=== PATIENT | female | born 1945 | race Caucasian/White ===

== ENCOUNTER 2018-02-11 08:03 | Outpatient (CLI) | payer MEDICARE, OTHER ==
[~2018-02-11] VITALS: Ht 162.6 cm; Wt 52.3 kg
--- NOTE | ~2018-02-11 | HEMODYNAMI ---
PATIENT:RIGO CRAMER MEDICAL RECORD: [id number] : 41 LOCATION:[facility] ADMISSION DATE: 02/11/18 Generatedon:02/11/201810:25 Patient name: RIGO CRAMER Patient #: [id number] SSN: : 1945 Date of study: 02/11/2018 Page: Of Hemodynamic Procedure Report Patient Data Patient Demographics Procedure consent was obtained First Name: RIGO Gender: Female Last Name: SHOAIB : 1945 [facility] Initial: MICHAEL Age: 72 year(s) Patient #: [id number] Race: Unknown Additional ID: [id number] Contact details [address]: [address] [place] [address] State: [place] City: [place] Zip code: [address] Past Medical History Allergies Allergen Reaction Date Comments Reported Other allergy 02/11/2018 Iodine, Morphine, Tetracycline. Admission Admission Data Admission Date: 02/11/2018 Admission Time: 8:03 Admit Source: Other Lab Results Lab Result Date: 02/11/2018 Lab Result Time: 9:04 Biochemistry Name Units Result Min Max BUN mg/dl 9 --(*---)-- 7 18 Creatinine mg/dl 0.8 --(-*--)-- 0.6 1.3 CBC Name Units Result Min Max Hematocrit % 37.7 *-(----)-- 42 54 Hemoglobin g/dl 12.7 -*(----)-- 13.5 17.5 Procedure Procedure Types Cath Procedure Diagnostic Procedure C LH w/Coronaries FFR/IVUS Intra-Coronary IVUS Initial Sedation Charges Moderate Sedation up to 15 minutes PCI Procedure Coronary Stent Coronary Stent Initial Peripheral Cath Diagnostic Procedure Notch Grinder Peripheral Procedures Wvhvr-Qpwsjjl-Rxg-Off Procedure Description Procedure Date Procedure Date: 02/11/2018 Procedure Start Time: 9:57 Procedure End Time: 10:22 Procedure Staff Name Function Jacques Mcmillan MD Performing Physician Lawson Callejas RT Scrub Franklin Rodriguez RT Monitor Buffie Akers RN Nurse Procedure Data Cath Procedure Fluoroscopy Diagnostic fluoroscopy Total fluoroscopy Time: 4.2 time: 4.2 min min Diagnostic fluoroscopy Total fluoroscopy dose: dose: 205.29 mGy 205.29 mGy Contrast Material Contrast Material Type Amount (ml) Isovue 300 156 Entry Location Entry Primary Successful Side Size Upsize Upsize Entry Closure Succes sful Closure Location (Fr) 1 (Fr) 2 (Fr) Remarks Device Remarks Femoral Left 5 Fr 6 Fr Exoseal artery Short Estimated blood loss: 10 ml Diagnostic catheters Device Type Used For End Catheter Placement MULTIPACK Pigtail 5 Fr Procedure catheter MULTIPACK JL 4.0 5Fr Procedure catheter MULTIPACK 3DRC 5Fr Procedure catheter Procedure Complications No complications Procedure Medications Medication Administration Route Dosage Oxygen etCO2 Nasal cannula 2 l/min Lidocaine 2% added to field 20 Heparin Flush Bag added to field 2 bags (1000units/500ml NS) 0.9% NaCl I.V. 100 ml/hr Versed I.V. 1 mg Fentanyl I.V. 50 mcg Versed I.V. 1 mg Fentanyl I.V. 50 mcg Heparin Bolus I.V. 4000 units Fentanyl I.V. 25 mcg Hemodynamics Rest HGB: 12.7 (g/dl) Heart Rate: 55 (bpm) Snapshots Pre Cath Intra NCS Post Cath Vital Signs Time Heart Resp SPO2 etCO2 NIBP (mmHg) Rhythm Pain Sedation Rate (ipm) (%) (mmHg) Status Level (bpm) 9:41:51 76 14 96 0 204/93(132) NSR 0 (11) 10(A) , No pain 9:46:30 69 13 99 0 192/85(140) NSR 0 (11) 10(A) , No pain 9:50:58 71 15 100 25 186/85(123) NSR 0 (11) 10(A) , No pain 9:55:10 75 12 95 0 161/96(143) NSR 0 (11) 10(A) , No pain 10:03:09 82 15 96 8.3 167/88(150) NSR 0 (11) 10(A) , No pain 10:07:33 85 12 98 18.2 182/92(121) NSR 0 (11) 9(A) , No pain 10:11:56 85 13 98 19.7 171/90(124) NSR 0 (11) 9(A) , No pain 10:16:20 94 13 100 0 180/93(146) NSR 0 (11) 10(A) , No pain 10:20:46 92 12 100 24.2 200/104(150) NSR 0 (11) 10(A) , No pain Medications Time Medication Route Dose Verified Delivered Reason Notes Effectiveness by by 9:45:51 Oxygen etCO2 2 Jacques George used for Nasal l/min Deyanira Akers RN procedure cannula 9:46:00 Lidocaine 2% added 20ml Jacques Jacques for local to vial Deyanira Mcmillan MD anesthetic field 9:46:06 Heparin Flush added 2 Jacques Jacques used for Bag to bags Deyanira Mcmillan MD procedure (1000units/500ml field NS) 9:46:16 0.9% NaCl I.V. 100 Jacques Buffie Per physician ml/hr Deyanira Akers RN 9:54:39 Versed I.V. 1 mg Jacques Rasheedie for sedation Deyanira Akers RN 9:54:44 Fentanyl I.V. 50 Jacques Buffie for sedation mcg Deyanira Akers RN 9:59:55 Versed I.V. 1 mg Jacques Buffie for sedation Deyanira Akers RN 10:00:03 Fentanyl I.V. 50 Jacques Buffie for sedation mcg Deyanira Akers RN 10:05:32 Fentanyl I.V. 25 Jacques Buffie for sedation mcg Deyanira Akers RN 10:08:21 Heparin Bolus I.V. 4000 Jacques Buffie for verif ied units Deyanira Akers RN anticoagulation with dr mcmillan Procedure Log Time Note 9:09:32 Informed consent obtained and on chart 9:27:18 Admit Source: Other 9:28:36 Diagnostic Cath status Elective 9:28:37 Lawson Callejas RT(R) sent for patient. Start room use. 9:28:38 Time tracking: Regular hours (M-F 7:00 - 5:00) 9:28:43 Plan of Care:Hemodynamics will remain stable., Cardiac rhythm will remain stable., Comfort level will be maintained., Respiratory function will remain adequate., Patient/ family verbilizes understanding of procedure., Procedure tolerated without complication., Recovers from procedure without complications.. 9:30:40 Lab Result : BUN 9 mg/dl 9:30:40 Lab Result : Creatinine 0.8 mg/dl 9:30:40 Lab Result : Hemoglobin 12.7 g/dl 9:30:40 Lab Result : Hematocrit 37.7 % 9:30:43 Lab results completed and on chart. 9:33:58 Patient received from Pre/Post Procedure Room to CCL 3 Alert and oriented. Tansferred to table in Supine position. 9:33:59 Warm blankets applied, and alisson hugger turned on for patient comfort. 9:33:59 Correct patient and procedure confirmed by team. 9:34:00 ECG and BP/O2 sat monitors applied to patient. 9:34:19 H&P Date Dictated: 02/04/2018 Within 30 days and on chart., H&P Addendum completed by physician on day of procedure. (MUST COMPLETE FOR ALL OUTPATIENTS). 9:34:20 Pre-procedure instructions explained to patient. 9:34:20 Pre-op teaching completed and patient verbalized understanding. 9:34:21 Family in waiting room. 9:34:24 Patient NPO since Midnight. 9:39:26 Vital chart was started 9:45:51 Oxygen 2 l/min etCO2 Nasal cannula was administered by Ariel Akers RN; used for procedure; 9:46:00 Lidocaine 2% 20ml vial added to field was administered by Jacques Mcmillan MD; for local anesthetic; 9:46:04 Baseline sample Acquired. 9:46:06 Heparin Flush Bag (1000units/500ml NS) 2 bags added to field was administered by Jacques Mcmillan MD; used for procedure; 9:46:12 Baseline sample Acquired. 9:46:16 0.9% NaCl 100 ml/hr I.V. was administered by Ariel Akers RN; Per physician; 9:46:18 Rhythm: sinus rhythm 9:46:19 Full Disclosure recording started 9:46:34 Patient allergic to Other allergyIodine, Morphine, Tetracycline. 9:46:36 Is the patient allergic to Iodine/contrast media? Yes. 9:46:37 Was the patient premedicated? Yes 9:46:38 Is patient on blood thinner?Yes 9:46:40 ACC The patient was administered the following blood thiners within the last 24 hours: ACCPlavix 9:46:42 Patient diabetic? No. 9:46:44 Previous problem with sedation/anesthesia? No ? 9:46:45 Snore? Yes 9:46:46 Sleep apnea? Yes 9:46:47 Deviated septum? No 9:46:47 Opens mouth fully? Yes 9:46:48 Sticks out tongue? Yes 9:46:49 Airway obstruction? Yes ? 9:46:51 Dentures? No ? 9:46:54 Pre procedure: right dorsailis pedis pulse 2+ Normal; easily identifiable; not easily obliterated 9:46:56 Pre procedure: left dorsailis pedis pulse 2+ Normal; easily identifiable; not easily obliterated 9:47:04 Patient pain scale 0/10 ?. 9:47:09 IV patent on arrival in left wrist with 0.9% NaCl at [facility]. 9:47:15 Bilateral groins area was prepped with chlora-prep and draped in sterile fashion 9:47:16 Alarms reviewed by R. N. 9:47:16 Sharps counted by scrub and verified by R.N. 9:47:18 Use device set Femoral Dx 9:47:19 ACIST Syringe (73854) opened to sterile field. 9:47:19 Bag Decanter (2002S) opened to sterile field. 9:47:20 Medline Cath Pack ([id number]) opened to sterile field. 9:47:21 ACIST Hand Control (06693) opened to sterile field. 9:47:21 ACIST Manifold (75603) opened to sterile field. 9:47:22 Tegaderm 4 x 4 (1626W) opened to sterile field. 9:47:23 SHEATH 5FR [place] (UJS052) opened to sterile field. 9:47:25 DIAGNOSTIC WIRE .035 260cm J wire (229815) opened to sterile field. 9:47:25 DIAGNOSTIC Multipack 5Fr catheter set (WL6186) opened to sterile field. 9:54:08 Physician arrived 9:54:08 --------ALL STOP TIME OUT------ 9:54:09 Final Timeout: patient, procedure, and site verified with staff and physician. All members of the team are in agreement. 9:54:10 Bilateral groins site verified by team. 9:54:12 Physical assessment completed. ASA score P 2 - A patient with mild systemic disease as per Jacques Mcmillan MD. 9:54:15 Sedation plan: IV Moderate Sedation Medication:Versed, Fentanyl 9:54:39 Versed 1 mg I.V. was administered by Ariel Akers RN; for sedation; 9:54:44 Fentanyl 50 mcg I.V. was administered by Ariel Akers RN; for sedation; 9:55:04 Zero performed for pressure channel P1 9:55:07 Zero performed for pressure channel P1 9:55:10 Zero performed for pressure channel P1 9:57:48 Procedure started. 9:57:54 Local anesthetic to left femerol artery with Lidocaine 2% by Jacques Mcmillan MD.INITIAL ACCESS ONLY 9:58:00 A 5 Fr sheath was inserted into the Left Femoral artery 9:59:44 A MULTIPACK Pigtail 5 Fr catheter was advanced over the wire and used for Procedure. 9:59:55 Versed 1 mg I.V. was administered by Ariel Akers RN; for sedation; 10:00:03 Fentanyl 50 mcg I.V. was administered by Ariel Akers RN; for sedation; 10:00:11 LV gram done using MARTELL 10:00:14 Injector settings: Ml/sec: 10, Volume: 20, 10:00:17 LV hemodynamics recorded. 10:00:25 EF : 55 % 10:00:32 Abdominal angiogram w/ runoff was performed. 10:00:51 Left leg runoff performed. 10:00:53 Right leg runoff performed. 10:01:08 Right leg runoff performed. 10:01:36 Catheter exchanged over wire. 10:01:40 A MULTIPACK JL 4.0 5Fr catheter was advanced over the wire and used for Procedure. 10:03:26 LCA angiography performed. 10:04:17 Catheter exchanged over wire. 10:04:39 A MULTIPACK 3DRC 5Fr catheter was advanced over the wire and used for Procedure. 10:05:00 RCA angiography performed. 10:05:32 Fentanyl 25 mcg I.V. was administered by Ariel Akers RN; for sedation; 10:05:32 GUIDE 6FR HS I SH catheter ([id number]) opened to sterile field. 10:05:33 [place] [employer] [place] IVUS Catheter (61801W) opened to sterile field. 10:05:33 CHOICE PT Extra Support 182cm wire ([id number]) opened to sterile field. 10:05:34 INFLATOR Merit BasixCompak (XP4406) opened to sterile field. 10:05:39 EXOSEAL 6Fr (EX600) opened to sterile field. 10:05:46 SHEATH 6FR [place] (JHL794) opened to sterile field. 10:05:53 Catheter removed. 10:06:29 Sheath upsized to a 6 Fr Short. 10:06:35 6 Fr HS I SH guide catheter was inserted over the wire 10:08:04 CHOICE PT ES wire advanced. 10:08:15 Wire advanced across lesion. 10:08:21 Heparin Bolus 4000 units I.V. was administered by Ariel Akers RN; for anticoagulation; verified with dr mcmillan 10:08:30 IVUS catheter advanced over wire. 10:08:33 IVUS pass to RCA lesion performed. 10:08:34 IVUS catheter removed over wire. 10:12:19 Place stent Inflation Number: 1 A LALITO RX 3.5 x 15 stent ([id number]) was prepped and advanced across the Mid RCA. The stent was deployed at 11 SONYA for 0:10 (min:sec). 10:12:36 Stent catheter was removed intact over wire. 10:13:18 Place stent Inflation Number: 1 A LALITO RX 3.5 x 12 stent ([id number]) was prepped and advanced across the Prox RCA. The stent was deployed at 13 SOYNA for 0:10 (min:sec). 10:13:33 Stent catheter was removed intact over wire. 10:13:33 Wire removed. 10:13:35 Guide catheter removed. 10:13:41 Sheath removed intact; hemostasis achieved with Exoseal to the Left Femoral artery. 10:13:42 Procedure ended.(Physican Out) 10:17:09 Fluoroscopy time 04.20 minutes. 10:17:18 Fluoroscopy dose: 205.29 mGy 10:17:18 Flurop Dose total: 205.29 10:17:30 Contrast amount:Isovue 300 156ml. 10:17:32 Sharps counted by scrub and verified by R.N. 10:17:33 Insertion/operative site no bleeding no hematoma. 10:17:36 Post-op/insertion site Left Femoral artery dressed using a 4 x 4 and Tegaderm. 10:17:40 Post left femerol artery:stable, soft, clean and dry 10:18:09 Post Procedure Pulses reassessed and unchanged 10:18:13 Post-procedure physical assessment completed. ASA score P 2 - A patient with mild systemic disease as per Jacques Mcmillan MD. 10:18:15 Post procedure rhythm: unchanged. 10:18:18 Estimated blood loss: 10 ml 10:21:23 Post procedure instruction explained to patient.Patient verbalizes understanding. 10::46 Procedure type changed to Cath procedure, Diagnostic procedure, LHC, LHC w/Coronaries, FFR/IVUS, Intra-Coronary IVUS Initial, Sedation Charges, Moderate Sedation up to 15 minutes, PCI procedure, Coronary Stent, Coronary Stent Initial, Peripheral Cath Diagnostic Procedure, Notch Grinder Peripheral Procedures, Zfrjn-Ajljzsb-Xps-Off 10:22:38 Procedure and supply charges have been captured, reviewed, submitted and are correct. 10:22:39 Procedure Complication : No complications 10:22:41 Vital chart was stopped 10::41 See physician's report for complete and final results. 10:22:43 Report given to Pre/Post Procedure Room. 10:22:45 Patient transfered to Pre/Post Procedure Room with Stretcher. 10:22:46 Procedure ended. 10:22:46 Full Disclosure recording stopped 10:23:05 End room use (Document Last) Intervention Summary Intervention Notes Time ActionType Lesion and Equipment Used Action# Pressure Duration Attributes 10:12:19 Place stent Mid RCA LALITO RX 3.5 x 1 11 00:10 15 stent ([id number]) 10:13:18 Place stent Prox RCA LALITO RX 3.5 x 1 13 00:10 12 stent ([id number]) Device Usage Item Name Manufacture Quantity Catalog Number Hospital Part Current M inimal Lot# / Charge Number Stock Stock Serial# Code ACIST Syringe Acist 1 81946 [id number] 509593 530766 2 0 (49782) Medical Systems Inc Bag Decanter Microtek 1 509258 83123 637316 5 () Medical Inc. Medline Cath Medline 1 [id number] 790372 19835 015521 5 Pack ([id number]) ACIST Hand Acist 1 69547 420662 987063 769126 5 Control Medical (76310) Systems Inc ACIST Manifold Acist 1 02365 852388 636461 338904 5 (40313) Medical Systems Inc Tegaderm 4 x 4 3M 1 1626W 455802 233469 600391 5 (1626W) SHEATH 5FR Terumo 1 SPF253 007964 684379 665300 4 0 [place] (OHL897) DIAGNOSTIC St Brian 1 056787 116144 644556 478869 3 0 WIRE .035 260cm J wire (297535) DIAGNOSTIC Cardinal 1 FF2325 229297 42304 605743 3 0 Multipack 5Fr Health catheter set (IQ4035) MULTIPACK Cardinal 1 144562 5 Pigtail 5 Fr Health catheter MULTIPACK JL Cardinal 1 171661 5 4.0 5Fr Health catheter MULTIPACK 3DRC Cardinal 1 966506 5 5Fr catheter Health GUIDE 6FR HS I Medtronic 1 [id number] 841316 74416 239450 1 SH catheter ([id number]) [place] 1 22443F 637001 751535 162883 8 [employer] [place] IVUS Catheter (61104X) CHOICE PT Rulo 1 [id number] 897933 404266 379418 5 Extra Support Scientific 182cm wire ([id number]) INFLATOR Merit Merit 1 PF5415 132262 398761 854239 1 5 CyberArts (NU3428) EXOSEAL 6Fr Cardinal 1 EX600 749916 488724 565646 1 0 (EX600) Health SHEATH 6FR Terumo 1 YEY665 949284 149661 625586 4 0 [place] (ACQ719) LALITO RX 3.5 x Medtronic 1 [id number] 887838 3411551 631065 5 [id number] 15 stent ([id number]) LALITO RX 3.5 x Medtronic 1 [id number] 933181 6898034 909735 5 [id number] 12 stent ([id number]) Signature Audit [place] Stage Time Signature Unsigned Intra-Procedure 02/11/2018 Franklin Rodriguez 10:25:13 AM RT(R) Signatures Monitor : Franklin Rodriguez RT Signature : Date : Time : [facility] [address] [place] [address]
--- NOTE | ~2018-02-11 | OP ---
PATIENT NAME: RIGO CRAMER MEDICAL RECORD: [id number] :41 LOCATION:D.CAT ADMISSION DATE: SURGEON: DANITZA KHAN MD DATE OF OPERATION: 02/11/2018 PROCEDURES: 1. Aortofemoral runoff. 2. Abdominal aortography. INDICATIONS: Claudication and peripheral vascular disease. PROCEDURE IN DETAIL: After informed consent, after detailed discussion of the risks, benefits as well as alternative therapies, the patient elected to proceed with angiogram and aortofemoral runoff. FINDINGS: The catheter was advanced to the abdominal aorta, pulled down for aortofemoral runoff. Abdominal aortography reveals no significant abdominal aortic disease, no dissection or annulus formation. No renal artery stenosis. RIGHT LEG: A. Iliac: The common iliac is totally occluded, reconstitutes via collaterals to the external iliac, this appears to be widely patent. B. Femoral system: The common femoral and deep femoral are widely patent. Superficial femoral had multiple areas of 70% to 80% stenosis. C. Popliteal and infrapopliteal vessels are actually patent with good 3-vessel runoff to the foot. LEFT LEG: A. Iliac: The common iliac has moderate irregularities but no flow-limiting stenosis. Internal and external iliacs are widely patent. B. Femoral system: The common and deep femoral are widely patent. Superficial femoral has multiple areas of 70% to 80% stenosis throughout the mid vessel. C. Popliteal and infrapopliteal vessels are patent with good 3-vessel runoff to the foot. 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 TRANSINT:[id number] Voice Confirmation ID: [id number] DOCUMENT ID: [id number] DANITZA KHAN MD at 1925 CC: [id number] DICTATION DATE: 02/11/18 1022 GAS OPERATION MANAGER: 02/11/18 1158 DEP CLI 02/11/18 [place] [id number] [place] [id number]
--- NOTE | ~2018-02-11 | OP ---
PATIENT NAME: RIGO CRAMER MEDICAL RECORD: [id number] :41 LOCATION:D.CAT ADMISSION DATE: SURGEON: DANITZA KHAN MD DATE OF OPERATION: 02/11/2018 PROCEDURES: 1. PTCA and stent of the RCA. 2. Intravascular ultrasound. 3. Left heart catheterization. 4. Selective coronary angiography. 5. Left ventriculogram. INDICATIONS: Angina and coronary artery disease. PROCEDURE IN DETAIL: After informed consent was obtained and after a detailed explanation of risks, benefits as well as alternative therapies, the patient elected to proceed with angiogram and angioplasty. The left femoral area was prepped and draped in normal sterile fashion. Left femoral artery was cannulated via modified Seldinger technique with placement of 6-Malay sheath. FINDINGS: Left ventriculogram was performed in standard 30-degree MARTELL view, reveals good cardiac wall motion throughout all segments. Overall ejection fraction estimated at 60%. SELECTIVE CORONARY ANGIOGRAPHY: 1. Left main is with no significant angiographic disease. 2. Left anterior descending has previously placed stents, these are widely patent with no significant restenosis. No disease elsewise throughout the LAD or its branches. 3. Left circumflex has moderate irregularities but no flow-limiting stenosis. 4. Right coronary has 2 areas of greater than 75% stenosis confirmed by intravascular ultrasound. STENO TYPIST STENT OF THE RCA: Stents used were 3.5 x 15 and 3.5 x 12, both [place] stents. Result was 0% residual stenosis. OVERALL IMPRESSION: Successful PTCA and stent of the right coronary artery going from 75% to 80% initial stenosis to 0% residual. TRANSINT:[id number] Voice Confirmation ID: [id number] DOCUMENT ID: [id number] DANITZA KHAN MD at 1925 CC: [id number] DICTATION DATE: 02/11/18 1022 WATCH INSPECTOR: 02/11/18 1156 DEP CLI 02/11/18 [facility] [address] [place] [address]
[~2018-02-11 08:03] MED LIST: ASPIRIN EC81 M1 PO; ASPIRIN EC81 MG PO; ATIVAN0.5 MG PO; CARAFATE1 G/10 ML PO; CATAPRES0.1 MG; CATAPRES0.1 MG PO; CORGARD20 MG PO; HYDROCHLOROTHIA25 MG PO; HYDROCODONE-APA1 TAB PO; LISINOPRIL-HCTZ1 T11; NEURONTIN 100100 MG; NEURONTIN 300300 MG PO; NORCO 10/325 TA1 TA1 PO; PLAVIX75 MG PO; PREDNISONE20 MG PO; PRINIVIL20 MG PO; PROTONIX40 MG PO
[2018-02-11] MEDS ORDERED: LIPITOR80 MG PO (08:27)
[2018-02-11] MEDS ORDERED: PLAVIX75 MG PO (08:28)
[2018-02-11] MEDS ORDERED: ULTRAM50 MG PO (08:28)
[2018-02-11] MEDS ORDERED: COREG6.25 MG PO (08:28)
[2018-02-11] MEDS ORDERED: CELEXA10 MG PO (08:28)
[2018-02-11 08:33] VITALS: BP 179/77; Ht 162.6 cm; Wt 52.3 kg
[2018-02-11 09:03] LABS: BASOPHILS 0.3 % (0-2); EOSINOPHILS 1.1 % (0-7); HEMATOCRIT 37.7 % (36.0-48.0); HEMOGLOBIN 12.7 g/dL (12-16); IMMATURE GRANULOCYTES 0.1 % (0-5); LYMPHOCYTES 20.9 % (15-50); MCH 30.7 pg (26.0-34.0); MCHC 33.7 g/dL (31.0-37.0); MCV 91.1 fL (80.0-100.0); MEAN PLATELET VOLUME 9.1 fL (7.4-10.4); MONOCYTES 2.8 % (2-11); NEUTROPHILS 74.8 % (40-80); PLATELET COUNT 275 10x3/uL (130-400); RBC 4.14 10x6/uL (4.00-5.40); RDW 13.3 % (11.5-14.5); WBC 7.1 10x3/uL (4.8-10.8)
[2018-02-11 09:12] LABS: ANION GAP 10.3 mmol/L (8-16); CALCIUM 8.8 mg/dL (8.5-10.1); CARBON DIOXIDE 29.9 mmol/L (21.0-32.0); CREATININE - SERUM 0.8 mg/dL (0.6-1.3); POTASSIUM - SERUM 4.2 mmol/L (3.5-5.1)
[2018-02-11] MEDS ORDERED: ASPIRIN81 MG PO (10:48)
== END 2018-02-11 14:27 | disposition home or self-care (01) ==
LOC: D.CATH 08:03
PROVIDERS: Internal Medicine Interventional Cardiology
DX: I25.119 Atherosclerotic heart disease of native coronary artery with unspecified angina pectoris (principal); I70.219 Atherosclerosis of native arteries of extremities with intermittent claudication, unspecified extremity
CPT/HCPCS: 93458; 92978; C9600

== ENCOUNTER 2018-10-21 10:02 | Observation (INO) | payer MEDICARE ==
[~2018-10-21] VITALS: Ht 162.6 cm; Wt 73.6 kg
--- NOTE | ~2018-10-21 | HEMODYNAMI ---
PATIENT:RIGO CRAMER MEDICAL RECORD: [id number] : 41 LOCATION:[facility] D.[address] [facility]# [id number] ADMISSION DATE: 10/21/18 Generatedon:10/22/201812:19 Patient name: RIGO CRAMER Patient #: [id number] SSN: [id number] : 1945 Date of study: 10/22/2018 Page: Of Hemodynamic Procedure Report Patient Data Patient Demographics Procedure consent was obtained First Name: RIGO Gender: Female Last Name: SHOAIB : 1945 [facility] Initial: Naomy Age: 73 year(s) Patient #: [id number] Race: SSN: [id number] Additional ID: [id number] Contact details Address: [address] [place] [address] State: [place] City: [place] Zip code: [address] Past Medical History Allergies Allergen Reaction Date Comments Reported Other allergy 02/11/2018 Iodine, Morphine, Tetracycline. Other allergy 10/22/2018 IODINATED CONTRAST, MORPHINE, TETRACYCLINE Admission Admission Data Admission Date: 10/21/2018 Admission Time: 11:56 Arrival Date: 10/22/2018 Arrival Time: 0:00 Admit Source: Other Insurance Payor: Medicare Room #: D.2117 [facility] #: [id number] Height (in.): 64 BSA: 1.79 (m2) Height (cm.): 162.56 BMI: 28 (kg/m2) Weight (lbs.): 163.14 Weight (kg.): 74 Medications upon Admission Medications Dosage Times Administered Last Remarks per Delivery Day Date and Time Aspirin 81 mg (any) Beta [place] 12.5 mg (any) Current Diagnosis Diagnosis Description Stable angina Lab Results Lab Result Date: 10/22/2018 Lab Result Time: 0:00 Biochemistry Name Units Result Min Max BUN mg/dl 20 --(----)*- 7 18 Creatinine mg/dl 1 --(--*-)-- 0.6 1.3 eGFR ml/min 57 *-(----)-- 90 120 NONAFRICAN CBC Name Units Result Min Max Hematocrit % 38.4 *-(----)-- 42 54 Hemoglobin g/dl 12.9 -*(----)-- 13.5 17.5 Procedure Procedure Types Cath Procedure Diagnostic Procedure [facility] w/Coronaries FFR/IVUS FFR Initial Procedure Description Procedure Date Procedure Date: 10/22/2018 Procedure Start Time: 12:04 Procedure End Time: 12:17 Procedure Staff Name Function Jacques Mcmillan MD Performing Physician Juliane Rodgers RT Monitor Lawson Callejas RT Scrub Mary Brasher RT Scrub Waldo Dunn RN Nurse Indication CAD Angina Atrial fibrillation Procedure Data Cath Procedure Fluoroscopy Diagnostic fluoroscopy Total fluoroscopy Time: 2.2 time: 2.2 min min Diagnostic fluoroscopy Total fluoroscopy dose: 424 dose: 424 mGy mGy Contrast Material Contrast Material Type Amount (ml) Isovue 300 73 Entry Location Entry Primary Successful Side Size Upsize Upsize Entry Closure Succes sful Closure Location (Fr) 1 (Fr) 2 (Fr) Remarks Device Remarks Femoral Left 5 Fr Exoseal artery Estimated blood loss: 10 ml Diagnostic catheters Device Type Used For End Catheter Placement MULTIPACK Pigtail 5 Fr Procedure catheter MULTIPACK JL 4.0 5Fr Procedure catheter MULTIPACK 3DRC 5Fr Procedure catheter Procedure Complications No complications Procedure Medications Medication Administration Route Dosage 0.9% NaCl I.V. 100 ml/hr Oxygen etCO2 Nasal cannula 2 l/min Heparin Flush Bag added to field 2 bags (1000units/500ml NS) Lidocaine 2% added to field 20 Versed I.V. 1 mg Fentanyl I.V. 50 mcg Versed I.V. 1 mg Fentanyl I.V. 50 mcg Hemodynamics Rest BSA: 1.79 (m2) HGB: 12.9 (g/dl) O2 Consumption: Estimated: 162.66 (ml/min) O2 Co nsumption indexed: Estimated:90.87 (ml/min/m) Heart Rate: 70 (bpm) Snapshots Pre Cath Intra NCS Post Cath Vital Signs Time Heart Resp SPO2 etCO2 NIBP (mmHg) Rhythm Pain Sedation Rate (ipm) (%) (mmHg) Status Level (bpm) 11:51:27 74 19 100 31.6 201/90(149) NSR 0 (11) 10(A) , No pain 11:55:59 72 14 100 35.3 220/90(162) NSR 0 (11) 10(A) , No pain 12:00:30 68 15 97 27 177/87(146) NSR 0 (11) 10(A) , No pain 12:04:52 69 13 97 3 174/88(140) NSR 0 (11) 10(A) , No pain 12:09:16 72 10 95 0 162/76(136) NSR 0 (11) 9(A) , No pain 12:13:34 74 12 92 0 176/83(138) NSR 0 (11) 9(A) , No pain 12:17:56 75 11 85 20.3 179/88(139) NSR 0 (11) 9(A) , No pain Medications Time Medication Route Dose Verified Delivered Reason Notes Eff ectiveness by by 11:55:19 0.9% NaCl I.V. 100 Waldo Waldo Per ml/hr Shaun Dunn physician RN RN 11:55:29 Oxygen etCO2 2 Waldo Waldo for low 02 Nasal l/min Lorigan Lorigan sats cannula RN RN 11:55:39 Heparin Flush added 2 Waldo Waldo used for Bag to bags Lorigan Lorigan procedure (1000units/500ml field RN RN NS) 11:55:50 Lidocaine 2% added 20ml Waldo Waldo for local to vial Lorigan Lorigan anesthetic field RN RN 12:02:52 Versed I.V. 1 mg Waldo Waldo for Lorigan Lorigan sedation RN RN 12:03:03 Fentanyl I.V. 50 Waldo Waldo for mcg Lorigan Lorigan sedation RN RN 12:05:01 Versed I.V. 1 mg Waldo Waldo for Lorigan Lorigan sedation RN RN 12:05:07 Fentanyl I.V. 50 Waldo Waldo for mcg Lorigan Lorigan sedation RN gusset edger Log Time Note 11:31:35 Waldo Dunn RN sent for patient. Start room use. 11:31:37 Procedure Status Urgent Heart Cath (IP). 11:31:39 Time tracking: Regular hours (M-F 7:00 - 5:00) 11:31:43 Plan of Care:Hemodynamics will remain stable., Cardiac rhythm will remain stable., Comfort level will be maintained., Respiratory function will remain adequate., Patient/ family verbilizes understanding of procedure., Procedure tolerated without complication., Recovers from procedure without complications.. 11:34:54 Informed consent obtained and on chart 11:39:47 Patient allergic to Other allergyIODINATED CONTRAST, MORPHINE, TETRACYCLINE 11:39:54 Arrival Date: 10/22/2018 12:00:00 AM 11:40:22 Admit Source: Other 11:40:23 Insurance Payor : Medicare 11:40:38 Patient Height : 64 inches 11:40:42 Patient Weight : 163.14 lbs 11:42:30 Current Diagnosis : Stable angina 11:42:41 Diagnostic Cath Status : Urgent 11:42:43 PCI Cath Status : Urgent 11:42:55 Indication : CAD 11:43:12 Patient received from Med II to CCL 1 Alert and oriented. Tansferred to table in Supine position. 11:43:13 Warm blankets applied, and alisson hugger turned on for patient comfort. 11:43:13 Correct patient and procedure confirmed by team. 11:43:14 ECG and BP/O2 sat monitors applied to patient. 11:49:08 Vital chart was started 11:49:09 Baseline sample Acquired. 11:49:11 Rhythm: sinus rhythm 11:49:13 Full Disclosure recording started 11:49:14 Pre-procedure instructions explained to patient. 11:49:14 Pre-op teaching completed and patient verbalized understanding. 11:49:15 Family in patients room. 11:49:16 Patient NPO since Midnight. 11:49:18 Is the patient allergic to Iodine/contrast media? Yes. 11:49:19 Was the patient premedicated? Yes 11:49:20 Is patient on blood thinner?No 11:49:23 Patient diabetic? No. 11:49:26 Patient not . Patient is over age 55. 11:49:48 Previous problem with sedation/anesthesia? No ? 11:49:50 Snore? Yes 11:49:51 Sleep apnea? No 11:49:52 Deviated septum? No 11:49:53 Opens mouth fully? Yes 11:49:54 Sticks out tongue? Yes 11:49:57 Airway obstruction? No ? 11:49:59 Dentures? No ? 11:50:03 Pre procedure: left dorsailis pedis pulse Doppler 11:50:06 Patient pain scale 0/10 ?. 11:50:11 IV patent on arrival in left forearm with 0.9% NaCl at [facility]. 11:51:07 Lab Result : BUN 20 mg/dl 11:51:07 Lab Result : eGFR NONAFRICAN 57 ml/min 11:51:07 Lab Result : Creatinine 1 mg/dl 11:51:07 Lab Result : Hemoglobin 12.9 g/dl 11:51:07 Lab Result : Hematocrit 38.4 % 11:51:10 Lab results completed and on chart. 11:51:13 Left groin area was prepped with chlora-prep and draped in sterile fashion 11:51:14 Alarms reviewed by R. N. 11:51:14 Sharps counted by scrub and verified by R.N. 11:53:21 Use device set Femoral Dx 11:53:23 ACIST Syringe (97528) opened to sterile field. 11:53:23 Bag Decanter (2002S) opened to sterile field. 11:53:24 ACIST Hand Control (26356) opened to sterile field. 11:53:25 ACIST Manifold (71416) opened to sterile field. 11:53:26 Tegaderm 4 x 4 (1626W) opened to sterile field. 11:53:27 Medline Cath Pack ([id number]) opened to sterile field. 11:53:28 DIAGNOSTIC Multipack 5Fr catheter set (MP9078) opened to sterile field. 11:53:29 SHEATH 5FR Rocklake (QYX074) opened to sterile field. 11:53:29 EMERALD Guide Wire (995-142) opened to sterile field. 11:55:19 0.9% NaCl 100 ml/hr I.V. was administered by Waldo Dunn RN; Per physician; 11:55:29 Oxygen 2 l/min etCO2 Nasal cannula was administered by Waldo Dunn RN; for low 02 sats; 11:55:39 Heparin Flush Bag (1000units/500ml NS) 2 bags added to field was administered by Waldo Dunn RN; used for procedure; 11:55:50 Lidocaine 2% 20ml vial added to field was administered by Waldo Dunn RN; for local anesthetic; 12:01:16 Indication : Angina 12:01:26 Indication : Atrial fibrillation 12::29 --------ALL STOP TIME OUT------ 12:02:30 Final Timeout: patient, procedure, and site verified with staff and physician. All members of the team are in agreement. 12:02:31 Left groin site verified by team. 12:02:35 Fire Safety Assessment: A--An alcohol-based skin anteseptic being used preoperatively., C--Open oxygen or nitrous oxide is being used., D--An ESU, laser, or fiber-optic light is being used. 12:02:38 Physical assessment completed. ASA score P 2 - A patient with mild systemic disease as per Jacques Mcmillan MD. 12:02:41 3a) 45-59 Moderately reduced kidney function. 12:02:45 Maximum allowable contrast dose (3.7 X eGFR X 0.75)158 ml. 12:02:48 Sedation plan: IV Moderate Sedation Medication:Versed, Fentanyl 12:02:50 Zero performed for pressure channel P1 12:02:52 Versed 1 mg I.V. was administered by Waldo Dunn RN; for sedation; 12:03:03 Fentanyl 50 mcg I.V. was administered by Waldo Dunn RN; for sedation; 12:04:19 Procedure started. 12:04:36 Local anesthetic to left femerol artery with Lidocaine 2% by Jacques Mcmillan MD.INITIAL ACCESS ONLY 12:05:01 Versed 1 mg I.V. was administered by Waldo Dunn RN; for sedation; 12:05:07 Fentanyl 50 mcg I.V. was administered by Waldo Dunn RN; for sedation; 12:05:07 A 5 Fr sheath was inserted into the Left Femoral artery 12:05:33 A MULTIPACK Pigtail 5 Fr catheter was advanced over the wire and used for Procedure. 12:05:36 LV gram done using MARTELL 12:05:42 Injector settings: Ml/sec: 10, Volume: 20, 12:06:01 EF : 70 % 12:06:02 Catheter removed. 12:06:14 A MULTIPACK JL 4.0 5Fr catheter was advanced over the wire and used for Procedure. 12:07:50 LCA angiography performed. 12:07:53 Catheter removed. 12:08:04 A MULTIPACK 3DRC 5Fr catheter was advanced over the wire and used for Procedure. 12:09:10 RCA angiography performed. 12:09:14 Catheter removed. 12:09:46 GUIDE 5FR EBU 3.5 catheter ([id number]) opened to sterile field. 12:09:46 INFLATOR Merit BasixCompak (XX4976) opened to sterile field. 12:09:46 Mulliken Verrata Plus pressure wire (26099T) opened to sterile field. 12:11:00 5 Fr EBU 3.5 guide catheter was inserted over the wire 12:12:02 FFR/IFR wire advanced. 12:12:34 Wire advanced across lesion. 12:13:06 mCirc lesion measured at .95 with IFR 12:13:15 Wire removed. 12:13:15 Guide catheter removed. 12:13:19 EXOSEAL 5Fr (EX500) opened to sterile field. 12:13:34 Sheath removed intact; hemostasis achieved with Exoseal to the Left Femoral artery. 12:13:47 Procedure ended.(Physican Out) 12:14:24 Fluoroscopy time 02.20 minutes. 12:14:31 Contrast amount:Isovue 300 73ml. 12:14:35 Fluoroscopy dose: 424 mGy 12:14:35 Flurop Dose total: 424 12:14:43 Dose Area Product 01993 mGy/cm. 12:14:45 Maximum allowable dose exceeded? No. 12:14:47 Sharps counted by scrub and verified by R.N. 12:14:51 Post-op/insertion site Left Femoral artery dressed using a 4 x 4 and Tegaderm. 12:14:53 Post-procedure physical assessment completed. ASA score P 2 - A patient with mild systemic disease as per Jacques Mcmillan MD. 12:14:56 Post procedure rhythm: sinus rhythm 12:15:01 Estimated blood loss: 10 ml 12:15:03 Post procedure instruction explained to patient.Patient verbalizes understanding. 12:15:03 Patient needs reinforcement of post procedure teaching. 12:16:01 Procedure type changed to Cath procedure, Diagnostic procedure, LHC, LHC w/Coronaries, FFR/IVUS, FFR Initial 12:16:37 Procedure and supply charges have been captured, reviewed, submitted and are correct. 12:16:42 Procedure Complication : No complications 12:17:27 Vital chart was stopped 12:17:28 See physician's report for complete and final results. 12:17:31 Report given to Med II. 12:17:33 Patient transfered to [facility] II with Bed. 12:17:35 Procedure ended. 12:17:35 Full Disclosure recording stopped 12:17:39 End room use (Document Last) Device Usage Item Name Manufacture Quantity Catalog Hospital Part Current Minima l Lot# / Number Charge Number Stock Stock Serial# Code ACIST Acist 1 70351 953064 277030 610334 20 Syringe Medical (94156) Systems Inc Bag Microtek 1 871279 91663 791105 5 Decanter Medical Inc. () ACIST Hand Acist 1 64546 923014 805359 658242 5 Control Medical (85313) Systems Inc ACIST Acist 1 78954 799540 093524 597830 5 Manifold Medical (75446) Systems Inc Tegaderm 4 3M 1 1626W 087549 563350 539934 5 x 4 (1626W) Medline Medline 1 INVT27719 238564 35151 944484 5 Cath Pack ([id number]) DIAGNOSTIC Cardinal 1 KN6087 106875 43284 008313 30 Multipack Health 5Fr catheter set (WF4051) SHEATH 5FR Terumo 1 BEI841 137021 562582 714591 5 [place]lake (PER850) EMERALD Cardinal 1 502-455 258096 845960 728739 5 Guide Wire Health (502-455) MULTIPACK Cardinal 1 875012 5 Pigtail 5 Health Fr catheter MULTIPACK Cardinal 1 505298 5 JL 4.0 5Fr Health catheter MULTIPACK Cardinal 1 012739 5 3DRC 5Fr Health catheter GUIDE 5FR Medtronic 1 [id number] 791153 751649 005008 1 EBU 3.5 catheter (NR4TNW68) INFLATOR Merit 1 XM4787 738654 259988 769103 15 [facility] BasixCompak (HH3108) Mulliken Mulliken 1 57308A 700401 698309660 332880 5 Verrata Plus pressure wire (15616T) EXOSEAL 5Fr Cardinal 1 EX500 226461 620320 114560 10 (EX500) Health Signature Audit [place] Stage Time Signature Unsigned Intra-Procedure 10/22/2018 Juliane Rodgers 12:19:23 PM RT(R) Signatures Performing Physician : Signature : Jacques Mcmillan MD Date : Time : Monitor : Juliane Rodgers Signature : RT Date : Time : Nurse : Waldo Lorigan Signature : RN Date : Time : [address] [place] [address]
[~2018-10-21 10:02] MED LIST changes: +ASPIRIN81 MG PO; +CELEXA10 MG PO; +COREG6.25 MG PO; +LIPITOR80 MG PO; +ULTRAM50 MG PO
[2018-10-21 10:08] VITALS: BP 103/72
[2018-10-21 10:42] LABS: HEMATOCRIT 38.4 % (36.0-48.0); HEMOGLOBIN 12.9 g/dL (12-16); LYMPHOCYTES 38.6 % (15-50); MCH 30.1 pg (26.0-34.0); MCHC 33.6 g/dL (31.0-37.0); MCV 89.5 fL (80.0-100.0); MEAN PLATELET VOLUME 8.8 fL (7.4-10.4); PLATELET COUNT 284 10x3/uL (130-400); RBC 4.29 10x6/uL (4.00-5.40); RDW 13.4 % (11.5-14.5); WBC 8.4 10x3/uL (4.8-10.8)
[2018-10-21 10:55] LABS: APPEARANCE CLEAR (CLEAR); BACTERIA FEW /hpf (NONE SEEN); BILIRUBIN NEGATIVE (NEGATIVE); COLOR YELLOW (YELLOW); EPITHELIAL CELLS 0-5 /hpf (0-5); GLUCOSE NEGATIVE (NEGATIVE); KETONE NEGATIVE (NEGATIVE); MUCUS <1+ /lpf (NONE SEEN); NITRITE NEGATIVE (NEGATIVE); PROTEIN NEGATIVE (NEGATIVE); RED CELLS - URINE RARE /hpf (0-5); UROBILINOGEN NORMAL (NORMAL); WHITE CELLS - URINE 0-5 /hpf (0-5)
[2018-10-21 10:57] LABS: APTT 25.5 SECONDS (22.8-39.4); INR 0.99 (0.85-1.17); PROTIME 12.6 SECONDS (11.6-15.0)
[2018-10-21 11:00] VITALS: BP 101/55
[2018-10-21 11:02] LABS: ALBUMIN 3.5 g/dL (3.4-5.0); ALKALINE PHOSPHATASE 59 U/L (46-116); ALT (SGPT) 15 U/L (10-68); BILIRUBIN - TOTAL 0.49 mg/dL (0.2-1.3); CALC OSMOLALITY 275 mosm/kg (275-300); CARBON DIOXIDE 29.6 mmol/L (21.0-32.0); CHLORIDE - SERUM 99 mmol/L (98-107); GLUCOSE 125 mg/dL (74-106); POTASSIUM - SERUM 3.5 mmol/L (3.5-5.1); PROTEIN - SERUM 6.7 g/dL (6.4-8.2); SODIUM 136 mmol/L (136-145); UREA NITROGEN 20 mg/dL (7-18); eGFR NON AFRICAN AMERICAN 57 mL/min (90-120)
[2018-10-21 11:07] LABS: CKMB 1.5 U/L (0.0-3.6); CREATINE KINASE 57 UL (21-215); MAGNESIUM - SERUM 2.1 mg/dL (1.8-2.4); THYROID STIMULATING HORMONE 0.79 uIU/mL (0.36-3.74); TROPONIN-I < 0.017 ng/mL (0.000-0.060)
--- NOTE | 2018-10-21 11:47 | NUR ---
SECOND EKG OBTAINED PER EDP AT 1125
[2018-10-21 12:00] VITALS: BP 105/47
--- NOTE | 2018-10-21 12:38 | NUR ---
TRANSFER FROM ER BY SENDY. OREINTED TO ROOM. CALL LIGHT IN REACH. WILL CONT. PLAN OF CARE.
[2018-10-21] MEDS ORDERED: COREG12.5 MG PO (12:47)
[2018-10-21 12:53] VITALS: BP 105/47; Ht 162.6 cm; Wt 73.6 kg
--- NOTE | 2018-10-21 15:16 | NUR ---
DOES NOT WANT TO WEAR SCDS.
--- NOTE | 2018-10-21 15:37 | NUR ---
CONSENTS SIGNED FOR [facility].
--- NOTE | 2018-10-21 16:42 | NUR ---
LEAVING FOR V-Q SCAN BY W/C.
--- NOTE | 2018-10-21 17:07 | MORECARE ---
CASE MANAGEMENT DISCHARGE SUMMARY PATIENT: RIGO CRAMER UNIT: [id number] ADM DATE: 10/21/18 AGE: 73 : 43 SEX: F ROOM/BED: D.[facility] AUTHOR: JESS DENNY PHYSICIAN: REFERRING PHYSICIAN: MT WETZEL MD DATE OF SERVICE: 10/21/18 Discharge Plan Patient Name: RIGO CRAMER Facility: [facility]:[place] : 1945 Planned Disposition: Anticipated Discharge Date: Discharge Date: Expected LOS: Initial Reviewer: [email or web address] Initial Review Date: 10/21/2018 Generated: 10/21/18 6:06 pm Patient Name: RIGO CRAMER Page 25230 at 1707 All edits/amendments must be made on the electronic document DICTATION DATE: 10/21/181705 BEREAVEMENT COUNSELOR: RAYA 10/21/181705 RPT#: [id number] DC DATE: STATUS: ADM IN [facility] [address] [place] [address] END OF REPORT
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
--- NOTE | 2018-10-21 19:44 | NUR ---
RESUMING PATIENT CARE. PATIENT IS ALERT AND ORIENTED, RESTING COMFORTABLY IN BED. RESPIRATIONS ARE EVEN AND UNLABORED. NO S/S OF DISTRESS. NO C/O PAIN. CALL LIGHT WITHIN REACH. WILL CPOC.
[2018-10-21 20:00] VITALS: BP 137/69
[2018-10-22 00:05] VITALS: BP 153/73
[2018-10-22 04:14] VITALS: BP 182/80
[2018-10-22 05:30] LABS: BASOPHILS 0 % (0-2); EOSINOPHILS 0 % (0-7); HEMATOCRIT 33.1 % (36.0-48.0); HEMOGLOBIN 11.1 g/dL (12-16); IMMATURE GRANULOCYTES 0.2 % (0-5); LYMPHOCYTES 11.4 % (15-50); MCH 29.8 pg (26.0-34.0); MCHC 33.5 g/dL (31.0-37.0); MEAN PLATELET VOLUME 9.2 fL (7.4-10.4); MONOCYTES 0.6 % (2-11); NEUTROPHILS 87.8 % (40-80); PLATELET COUNT 264 10x3/uL (130-400); RBC 3.72 10x6/uL (4.00-5.40); RDW 13.8 % (11.5-14.5)
[2018-10-22 05:38] LABS: CALC OSMOLALITY 285 mosm/kg (275-300); CALCIUM 7.4 mg/dL (8.5-10.1); CARBON DIOXIDE 24.5 mmol/L (21.0-32.0); CHLORIDE - SERUM 107 mmol/L (98-107); GLUCOSE 126 mg/dL (74-106); POTASSIUM - SERUM 3.6 mmol/L (3.5-5.1); SODIUM 141 mmol/L (136-145); UREA NITROGEN 20 mg/dL (7-18); WBC 10.9 10x3/uL (4.8-10.8); eGFR NON AFRICAN AMERICAN 86 mL/min (90-120)
[2018-10-22 05:42] LABS: CREATININE - SERUM 0.7 mg/dL (0.6-1.3)
[2018-10-22 08:31] VITALS: BP 193/79
--- NOTE | 2018-10-22 11:30 | NUR ---
PRE-OPS GIVEN. TO CUSTOMS BROKER BY BED. NOTIFIED OF SBP 197. WILL CONT. PLAN OF CARE.
[2018-10-22 11:34] VITALS: BP 197/82
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
[2018-10-22] MEDS ORDERED: LISINOPRIL10 MG PO (12:38)
[2018-10-22] MEDS ORDERED: BETAPACE 80 MG80 MG PO (12:38)
--- NOTE | 2018-10-22 12:40 | NUR ---
BACK FROM [facility]. NEW MED STARTED FOR HTN. LEFT GROIN STABLE WITHOUT BLEEDING OR HEMATOMA NOTED. WILL MONITOR.
--- NOTE | 2018-10-22 13:50 | NUR ---
B/P 153/79. WILL CONT. PLAN OF CARE.
--- NOTE | 2018-10-22 14:21 | NUR ---
BED REST UP. GROIN STABLE.
--- NOTE | 2018-10-22 14:41 | NUR ---
DC PLANS GIVEN TO PATIENT AND DAUGHTERS. UNDERSTANDING VOICED. ESCORTED TO CAR BY W/C.
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
--- NOTE | 2018-10-28 09:52 | EC ---
PATIENT:RIGO CRAMER DATE OF SERVICE: 10/21/18 SEX: F MEDICAL RECORD: [id number] DATE OF : [birth year] LOCATION:D. D.211 AGE OF PATIENT: 73 ADMISSION DATE: 10/21/18 REFERRING PHYSICIAN: INTERPRETING PHYSICIAN: DANITZA MCMILLAN MD ECHOCARDIOGRAM REPORT ECHO CHARGES 4 ECHO COMPLETE Date: 10/21/18 CLINICAL DIAGNOSIS: CP ECHOCARDIOGRAPHIC MEASUREMENTS (adult normal given) AC root (d.<3.7cm) 2.7 cm LV Septum d (<1.2 cm> 0.8 cm Valve Excursion 1.4 cm LV Septum (systole) 0.9 cm Left Atria (s.<4.0cm> 3.9 cm LVPW d(<1.2cm) 1.2 cm RV (d.<2.3cm) 1.9 cm LVPW (sytole) 1.5 cm LV diastole(<5.6CM) 5.5 cm MV E-F(>70mm/sec) cm LV systole 4.4 cm LVOT Diameter 1.7 cm MV exc.(>10mm) cm Est.ejection fraction (50-75%) % DOPPLER: LVIT cm/sec A 60 cm/sec E 78 cm/sec LA cm/sec RVSP 26.1 mmHg LVOT 113 cm/sec AOP1/2T m/s Asc. Ao 132 cm/sec RVOT 62 cm/sec RA cm/sec PA 69 cm/sec AV Gradient Peak 7.0 mmHg AV Mean 3.5 mmHg AV Area 2.1 cm MV Gradient Peak 3.2 mmHg MV Mean 1.3 mmHg MV Area cm COMMENTS: Grades 1 Thru 6 Visiting Teacher: Tori GARIBAYCLAUDIA MICHELLE Field Control Inspector: 1 Dr. Mcmillan TAPE# PACS Pericardial Effusion N DATE OF SERVICE: 10/21/2018 FINDINGS: 1. Left ventricular chamber size is within normal limits. Left ventricular systolic function is normal. Overall ejection fraction estimated at 55%. 2. Left atrium, right atrium, and right ventricle chamber sizes are within normal limits. 3. Valvular structures have normal structure and motion. 4. Doppler interrogation reveals tsrp-kd-yiepjtve mitral regurgitation, mild tricuspid regurgitation, no other valvular insufficiency or stenosis. Pulmonary ECHOCARDIOGRAM REPORT [id number] RIGO CRAMER systolic pressure is estimated at 26 mmHg. 5. No evidence of pericardial effusion or left ventricular thrombus. TRANSINT:[id number] Voice Confirmation ID: [id number] DOCUMENT ID: [id number] DANITZA MCMILLAN MD at 0952 CC: [id number] DICTATION DATE: 10/21/181930 INSPECTOR PACKER: 10/21/182014 DIS IN 10/22/18 [facility] [address] [place] [id number]
--- NOTE | 2018-10-28 09:52 | OP ---
PATIENT NAME: RIGO CRAMER MEDICAL RECORD: [id number] :41 LOCATION:D.M2 D.2117 ADMISSION DATE:10/21/18 SURGEON: DANITZA KHAN MD DATE OF OPERATION: 10/22/2018 PROCEDURES: 1. Left heart catheterization. 2. Selective coronary angiography. 3. Left ventriculogram. 4. IFR. INDICATION: Atrial fibrillation, abnormal ECG, angina, and coronary artery disease. PROCEDURE IN DETAIL: After informed consent was obtained and after a detailed description of risks, benefits as well as alternative therapies, the patient elected to proceed with angiogram and heart catheterization. The left femoral area was prepped and draped in normal sterile fashion. Left femoral artery was cannulated via modified Seldinger technique with placement of 5-Chadian sheath. All catheters exchanged through this sheath. FINDINGS: Left ventriculogram was performed in standard 30-degree MARTELL view, reveals good cardiac wall motion, ejection fraction 70%. SELECTIVE CORONARY ANGIOGRAPHY: 1. Left main is with no significant angiographic disease. 2. Left anterior descending has previously placed stents, these are widely patent with no significant restenosis. No disease elsewise throughout the LAD or its branches. 3. Left circumflex has smso-yv-mgskqncw irregularities. IFR was normal. 4. The right coronary artery has previously placed stents, these are widely patent with no significant restenosis. No disease elsewise throughout the RCA or its branches. OVERALL IMPRESSION: Wide patency of the previously placed stents, no disease elsewise. Center medical management on treatment of the atrial fibrillation. TRANSINT:[id number] Voice Confirmation ID: [id number] DOCUMENT ID: [id number] DANITZA KHAN MD at 0952 CC: [id number] DICTATION DATE: 10/22/18 1218 PRODUCTION CONTROL COORDINATING CLERK: 10/22/18 1224 DIS IN 10/22/18 [address] [place] [address]
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
== END 2018-10-22 14:42 | disposition home or self-care (01) ==
LOC: D.ER 10:02 → D.M2 11:56 → OBSVTIME 11:56 → D.SDCHOLD 14:29 → D.M2 14:36
PROVIDERS: Emergency Medicine; ADMIT Internal Medicine Nephrology; ATTEND Internal Medicine Nephrology
DX: I25.119 Atherosclerotic heart disease of native coronary artery with unspecified angina pectoris (principal); I48.0 Paroxysmal atrial fibrillation; R94.31 Abnormal electrocardiogram [ECG] [EKG]; I10 Essential (primary) hypertension; E78.5 Hyperlipidemia, unspecified; K21.9 Gastro-esophageal reflux disease without esophagitis